=== PATIENT | male | born 1955 | race Caucasian/White ===

== ENCOUNTER 2018-04-13 01:42 | Inpatient (IN) | payer OTHER ==
[~2018-04-13] VITALS: Ht 180.3 cm; Wt 101.0 kg
[2018-04-13] MEDS ORDERED: PROMETHAZINE 25 MG/ML, 1ML IM PRN (05:00)
[2018-04-13] MEDS ORDERED: POLYETHYLENE GLYCOL 17 GM PACKET PO PRN (05:00)
[2018-04-13] MEDS ORDERED: KETOROLAC 30 MG/1 ML IV PRN (05:00)
[2018-04-13] MEDS ORDERED: ZOLPIDEM 5MG TABLET PO PRN (05:00)
[2018-04-13] MEDS ORDERED: hydrALAzine 20 MG/ML, 1ML IVPush PRN (05:00)
[2018-04-13] MEDS ORDERED: ONDANSETRON 2MG/ML, 2ML IVPush PRN (05:00)
[2018-04-13 05:23] VITALS: BP 128/79
[2018-04-13] MEDS ORDERED: PLEASE ENTER HEIGHT AND WEIGHT MC SCH (05:30)
[2018-04-13] MEDS ORDERED: PLEASE ENTER ALLERGIES MC SCH (05:30)
[2018-04-13] MEDS: SODIUM CHLORIDE 0.9% 1,000 ML IV SCH ×3 (05:40→23:44)
[2018-04-13] MEDS: HYDROmorphone 2 MG/ML, 1ML IVPush PRN ×2 (05:41→09:27)
[2018-04-13 05:47] LABS: BASOPHILS # (AUTO) 0.01 x10^3/uL (0-0.1); BASOPHILS % (AUTO) 0 % (0-1); EOSINOPHILS % (AUTO) 0 % (1-7); LYMPHOCYTES # (AUTO) 0.87 x10^3/uL (1-3.4); LYMPHOCYTES % (AUTO) 8 % (22-44); MD NO; MEAN CORPUSCULAR HEMOGLOBIN 28.7 pg (27.5-34.5); MEAN CORPUSCULAR HGB CONC 33.4 g/dL (33.2-36.2); MEAN CORPUSCULAR VOLUME 85.9 fL (81-97); MEAN PLATELET VOLUME 9.3 fL (7.4-10.4); MONOCYTES # (AUTO) 0.25 x10^3/uL (0.2-0.8); MONOCYTES % (AUTO) 2 % (2-9); NEUTROPHILS # (AUTO) 10.24 x10^3/uL (1.8-6.8); NEUTROPHILS % (AUTO) 90 % (42-75); PLATELET COUNT 213 x10^3/uL (130-400); RED BLOOD COUNT 5.25 x10^6/uL (4.38-5.82); RED CELL DISTRIBUTION WIDTH 12.9 % (9.4-14.8)
[2018-04-13] MEDS: INSULIN LISPRO 100 UNITS/ML, PEN SQ-INSULIN SCH ×5 (05:51→22:19)
[2018-04-13] MEDS: HEPARIN 5,000 UNITS/ML, 1ML SQ SCH ×3 (05:53→22:19)
[2018-04-13 05:58] LABS: CHLORIDE 106 mmol/L (98-107)
[2018-04-13 06:09] LABS: ANION GAP 10 mmol/L (5-15); CREATININE 1.73 mg/dL (0.7-1.3)
[2018-04-13 07:50] VITALS: BP 110/75
[2018-04-13] MEDS ORDERED: MIDAZOLAM 1 MG/ML, 2ML ONE (10:27)
[2018-04-13] MEDS ORDERED: PROPOFOL 10 MG/ML, 20ML ONE (10:28)
[2018-04-13] MEDS ORDERED: ROCURONIUM 10MG/ML,5ML ONE (10:28)
[2018-04-13] MEDS ORDERED: FENTANYL PF 250 MCG/5ML ONE (10:28)
[2018-04-13] MEDS ORDERED: ONDANSETRON 2MG/ML, 2ML ONE (10:33)
[2018-04-13] MEDS ORDERED: HYDROmorphone 1 MG/ML, 1ML IV PRN (11:00)
[2018-04-13] MEDS ORDERED: HALOPERIDOL 5 MG/ML IV PRN (11:00)
[2018-04-13] MEDS ORDERED: ACETAMINOPHEN 325 MG TABLET PO PRN (11:00)
[2018-04-13] MEDS ORDERED: METOPROLOL 1 MG/ML, 5ML IV PRN (11:00)
[2018-04-13] MEDS ORDERED: MEPERIDINE/PF 25MG/0.5ML IVPush PRN (11:00)
[2018-04-13] MEDS ORDERED: FENTANYL PF 100 MCG/2ML IV PRN (11:00)
[2018-04-13] MEDS ORDERED: LABETALOL 5MG/ML, 20ML IV PRN (11:00)
[2018-04-13] MEDS ORDERED: MORPHINE SULFATE 4 MG/ML, 1ML IVPush PRN (11:00)
[2018-04-13] MEDS ORDERED: OXYcodone 5 MG/5 ML ORAL.SOL UDC PO PRN (11:00)
[2018-04-13] MEDS ORDERED: hydrALAzine 20 MG/ML, 1ML IV PRN (11:00)
[2018-04-13] MEDS ORDERED: ONDANSETRON 2MG/ML, 2ML IV PRN (11:00)
[2018-04-13] MEDS ORDERED: CEFAZOLIN 1,000 MG ONE ×2 (11:18)
[2018-04-13] MEDS ORDERED: DEXAMETHASONE 4 MG/ML, 1ML ONE (11:20)
[2018-04-13] MEDS ORDERED: SUCCINYLCHOLINE 20 MG/ML, 10ML ONE (11:55)
[2018-04-13] MEDS ORDERED: KETOROLAC 30 MG/1 ML ONE (11:57)
[2018-04-13 13:50] VITALS: BP 125/80
[2018-04-13] MEDS: CIPROFLOXACIN/PMX 400MG/200ML 200 ML IV SCH (16:48)
[2018-04-13 19:36] VITALS: BP 100/60
[2018-04-13] MEDS: ACETAMINOPHEN 325 MG TABLET PO PRN (22:18)
[2018-04-14 01:46] VITALS: BP 112/69
[2018-04-14 04:40] LABS: BASOPHILS # (AUTO) 0.06 x10^3/uL (0-0.1); BASOPHILS % (AUTO) 0 % (0-1); EOSINOPHILS % (AUTO) 0 % (1-7); LYMPHOCYTES # (AUTO) 1.25 x10^3/uL (1-3.4); LYMPHOCYTES % (AUTO) 10 % (22-44); MD NO; MEAN CORPUSCULAR HEMOGLOBIN 29.1 pg (27.5-34.5); MEAN CORPUSCULAR HGB CONC 34.2 g/dL (33.2-36.2); MEAN CORPUSCULAR VOLUME 85.2 fL (81-97); MEAN PLATELET VOLUME 9.5 fL (7.4-10.4); MONOCYTES # (AUTO) 0.59 x10^3/uL (0.2-0.8); MONOCYTES % (AUTO) 5 % (2-9); NEUTROPHILS # (AUTO) 10.87 x10^3/uL (1.8-6.8); NEUTROPHILS % (AUTO) 85 % (42-75); PLATELET COUNT 173 x10^3/uL (130-400); RED BLOOD COUNT 4.54 x10^6/uL (4.38-5.82)
[2018-04-14] MEDS: CIPROFLOXACIN/PMX 400MG/200ML 200 ML IV SCH (04:44)
[2018-04-14 04:51] LABS: CHLORIDE 110 mmol/L (98-107)
[2018-04-14 04:53] LABS: ANION GAP 7 mmol/L (5-15); CREATININE 1.44 mg/dL (0.7-1.3)
[2018-04-14] MEDS: HEPARIN 5,000 UNITS/ML, 1ML SQ SCH (06:00)
[2018-04-14 06:34] VITALS: BP 109/71
[2018-04-14] MEDS ORDERED: INSULIN LISPRO 100 UNITS/ML, PEN SQ-INSULIN SCH (07:00)
[2018-04-14] MEDS: SODIUM CHLORIDE 0.9% 1,000 ML IV SCH (07:20)
[2018-04-14] MEDS: ACETAMINOPHEN 325 MG TABLET PO PRN (10:35)
== END 2018-04-14 11:57 | disposition home or self-care (01) | DRG 669 ==
LOC: 3NE 04:38
PROVIDERS: ADMIT Hospitalist; ATTEND Hospitalist
PROC: BT1F1ZZ Fluoroscopy of Left Kidney, Ureter and Bladder using Low Osmolar Contrast (ICD-10-PCS; 2018-04-13)
PROC: 0T778DZ Dilation of Left Ureter with Intraluminal Device, Via Natural or Artificial Opening Endoscopic (ICD-10-PCS; 2018-04-13)
PROC: 0TC78ZZ Extirpation of Matter from Left Ureter, Via Natural or Artificial Opening Endoscopic (ICD-10-PCS; principal; 2018-04-13 11:00)
DX: N20.2 Calculus of kidney with calculus of ureter (principal); N17.9 Acute kidney failure, unspecified; E11.65 Type 2 diabetes mellitus with hyperglycemia; N28.89 Other specified disorders of kidney and ureter; G47.30 Sleep apnea, unspecified; I10 Essential (primary) hypertension; I48.91 Unspecified atrial fibrillation; Z79.82 Long term (current) use of aspirin; Z88.2 Allergy status to sulfonamides
CPT/HCPCS: 36415; 80048; 82962; 83735; 84100; 85025; 93005; C1726; G0378; J0690; J0744; J1100; J1170; J1644; J1885; J2250; J2405; J2704; J3010; C1769; C2617; J0330; J1815; J7030